=== PATIENT | male | born 1980 | race Caucasian/White ===

== ENCOUNTER 2018-10-02 12:47 | Emergency (ER) | payer BC ==
[~2018-10-02] VITALS: Ht 188 cm; Wt 134.3 kg
[~2018-10-02 12:47] MED LIST: LOP50 PO; PER5 PO
[2018-10-02 12:56] VITALS: Ht 188 cm; Wt 134.3 kg
[2018-10-02 14:23] VITALS: BP 150/102
== END 2018-10-02 14:30 | disposition home or self-care (01) ==
LOC: ED 12:47
DX: H72.91 Unspecified perforation of tympanic membrane, right ear (principal); R07.89 Other chest pain; I10 Essential (primary) hypertension

== ENCOUNTER 2020-02-07 11:21 | Emergency (ER) | payer BC, SELFPAY ==
[~2020-02-07] VITALS: Ht 188 cm; Wt 125.6 kg
[2020-02-07 11:49] VITALS: Ht 188 cm; Wt 125.6 kg
[2020-02-07 12:54] LABS: BASOPHIL % 0.3 % (0.2-1.5); PLATELET COUNT 148 x10^3mcL (152-348); RED CELL DISTRIBUTION WIDTH 13.9 % (12.1-16.2)
[2020-02-07 13:03] LABS: CALCIUM 8.2 mg/dL (8.5-10.1); CARBON DIOXIDE 23.2 mmol/L (21-32); CHLORIDE SERUM 98 mmol/L (98-107); CREATININE SERUM 0.9 mg/dL (0.7-1.3); GFR1 > 60 mL/min; GLUCOSE SERUM 305 mg/dL (74-106); POTASSIUM SERUM 3.9 mmol/L (3.5-5.1); SODIUM SERUM 133 mmol/L (136-145)
[2020-02-07 13:08] LABS: ALKALINE PHOSPHATASE 82 U/L (46-116); ALT/SGPT 59 U/L (16-63); AMYLASE 37 U/L (25-115); AST/SGOT 42 U/L (15-37); BILIRUBIN TOTAL 0.3 mg/dL (0.20-1.00); C REACTIVE PROTEIN 4.2 mg/dL (<=0.9); LACTIC DEHYDROGENASE (LDH) 156 U/L (100-190); LIPASE 177 IU/L (73-393); TOTAL PROTEIN, SERUM 6.7 g/dL (6.4-8.2)
[2020-02-07 13:09] LABS: ALBUMIN 2.9 g/dL (3.4-5.0); CHOLESTEROL 80 mg/dL (<200); HDL CHOLESTEROL 19 mg/dL (40-60)
[2020-02-07 14:08] LABS: microscopic required? NO
[2020-02-07 14:18] LABS: urine erythrocyte NEGATIVE (NEGATIVE)
[2020-02-07 17:16] VITALS: BP 107/72
== END 2020-02-07 17:12 | disposition home or self-care (01) ==
LOC: ED 11:21
PROVIDERS: Emergency Medicine
DX: U07.1 COVID-19 (principal); J12.89 Other viral pneumonia; I10 Essential (primary) hypertension; E66.9 Obesity, unspecified; Z68.35 Body mass index [BMI] 35.0-35.9, adult
CPT/HCPCS: 36600; 82962; 83880; 85378; 87804; J7030; U0003